=== PATIENT | female | born 1945 | race Caucasian/White ===

== ENCOUNTER 2021-08-11 11:00 | Outpatient (REF) | payer MEDICARE, SELFPAY ==
--- NOTE | ~2021-08-11 | XR_ITS ---
EXAMINATION: XR CHEST CLINICAL INFORMATION: Wheezing COMPARISON: None TECHNIQUE: 2 views of the chest were obtained. FINDINGS: There are post-CABG changes. The cardiac and mediastinal contours are otherwise normal. There is a 5.6 cm round density in the right lower lobe questionable for mass versus round pneumonia. The left lung is clear. There is a small right pleural effusion. There are median sternotomy wires. There are mild degenerative changes of the spine. XR/XR chest 2V IMPRESSION: 5.6 cm round density in the right lower lobe. Differential include mass and round pneumonia. Small right pleural effusion.
[2021-08-11 14:48] LABS: Influenza A PCR NEGATIVE (Negative); Influenza B PCR NEGATIVE (Negative); Resp Syncy Virus RNA Qual PCR NEGATIVE (Negative); SARS COV2 PCR INHOUSE NEGATIVE (Negative)
== END 2021-08-11 11:01 | disposition home or self-care (01) ==
LOC: HO.HMGCLDS 11:00
PROVIDERS: PCP Internal Medicine; Visit Provider Nurse Practitioner Family
DX: Z20.822 Contact with and (suspected) exposure to COVID-19 (principal); J32.9 Chronic sinusitis, unspecified; R06.2 Wheezing
CPT/HCPCS: 0241U; 36415; 71046

== ENCOUNTER 2023-01-03 13:31 | Outpatient (REF) | payer MEDICARE, SELFPAY ==
[2023-01-03 14:03] LABS: Hematocrit 42.2 % (37.0-47.0); Mean Corpuscular HGB Conc 33.2 g/dl (31.0-35.0); Mean Corpuscular Hemoglobin 29.4 pg (27.0-33.0); Mean Corpuscular Volume 88.5 fL (80.0-98.0); Mean Platelet Volume 9.4 fL (9.4-12.3); Platelet Count 242 X10*3/uL (160-400); Red Blood Count 4.77 X10*6/uL (4.20-5.50); Red Cell Distribution Width 12.4 % (11.0-16.0); White Blood Count 6.9 X10*3/uL (4.8-10.8)
[2023-01-03 14:56] LABS: Alanine Aminotransferase 11 U/L (0-31); Albumin Level 4.2 g/dL (3.5-5.0); Alkaline Phosphatase 94 U/L (39-117); Anion Gap 13 (12-20); Aspartate Amino Transferase 19 U/L (5-31); Bilirubin Direct 0.2 mg/dL (0.0-0.5); Bilirubin Total 0.7 mg/dL (0.0-1.0); Blood Urea Nitrogen 14 mg/dL (9-16); Calcium 9.7 mg/dL (8.4-10.2); Carbon Dioxide 29 mmol/L (22-29); Chloride 102 mmol/L (96-108); Cholesterol 300 mg/dL; Estimated Glomerular Filt Rate 48; Glucose Random 79 mg/dL (60-115); HDL Cholesterol 54 mg/dL; LDL Cholesterol Calculated 217 mg/dl; Potassium 4.8 mmol/L (3.3-5.1); Sodium 139 mmol/L (135-145); Total Protein 7.2 g/dL (6.5-8.0); Triglycerides 145 mg/dL
[2023-01-03 15:16] LABS: Thyroid Stimulating Hormone 2.27 uIU/mL (0.32-4.0)
== END 2023-01-03 13:32 | disposition home or self-care (01) ==
LOC: HO.LAB 13:31
PROVIDERS: PCP Internal Medicine; Visit Provider Internal Medicine
DX: F32.9 Major depressive disorder, single episode, unspecified (principal); E78.00 Pure hypercholesterolemia, unspecified
CPT/HCPCS: 36415; 80048; 80061; 80076; 84443; 85027

== ENCOUNTER 2023-05-07 11:35 | Outpatient (AMB) | payer MEDICARE, SELFPAY ==
[2023-05-07 11:49] VITALS: BP 136/72; PULSE 52; O2SAT 98; BMI 28.7
--- NOTE | 2023-05-07 11:49 | MHC.PC.OV ---
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 Patient Dr. Ko last seen the beginging of this month for HDF for NSTEMI. Patient presents today for medication follow up. Patient presents today to request a refill on her Imdur ER 30 mg daily. Refill sent to patients pharmacy. Patient currently in the process of reestablishing care with at [facility]. Patient denies any acute complaints. [facility] Medical History (Updated 01/09/23 @ 10:41 by Stephan Ko MD) Coronary artery disease Hypercholesterolemia MDD (major depressive disorder) Surgical History History of bilateral cataract extraction History of surgery History of tonsillectomy History of wisdom tooth extraction S/P triple vessel bypass Social History Housing: House Alcohol intake: never Patient Tobacco Use Status: Never used Tobacco e-Cigarette/Vaping Use: Never Used Second Hand Smoke Exposure: No service: No Current occupational status: retired Cognitive needs: No Hearing needs: No Vision needs: No Questionnaire Thrive Questionnaire Date Thrive assessed: 01/08/23 AUDIT C Alcohol Use Questionnaire (AUDIT-C) 1. How often do you have a drink containing alcohol?: Monthly or less 2. How many drinks containing alcohol do you have on a typical day when you are drinking?: 1 or 2 3. How often do you have six or more drinks on one occasion?: Never Total Score: 1 ARMIN-7 AMB Questionnaire ARMIN-7 Date ARMIN - 7 assessed: 01/08/23 Source: Developed by Drs. Rl Rice, Amelia Longo, Everett Key and colleagues, with an educational bam from [employer]. Review of Systems Const Denies chills, Denies fatigue, Denies fever(s) and Denies poor appetite Eyes Denies no additional complaints ENT Reports Normal hearing present Card Denies chest pain, Denies syncope, Denies rapid heart rate and Denies dyspnea Resp Denies cough and Denies dyspnea GI Denies change in stool character, Denies constipation, Denies diarrhea, Denies nausea and Denies vomiting Denies urinary frequency, Denies dysuria and Denies urinary urgency Neuro Reports Normal hearing present, Denies confusion and Denies syncope Psych Denies confusion Endo Denies fatigue Physical exam (Primary Care) Vital Signs: Last Vital Signs Pulse 52 05/07/23 11:49 BP 136/72 05/07/23 11:49 Pulse Ox 98 05/07/23 11:49 Oxygen Delivery Method Room Air 05/07/23 11:49 BMI result Body Mass Index 28.7 Tobacco/Smoking Status: Tobacco use Status Tobacco use date assessed 05/07/23 05/07/23 11:53 Patient Tobacco Use Status Never used Tobacco 05/07/23 11:53 e-Cigarette/Vaping Use Never Used 05/07/23 11:53 Thrive Assessment: Date of Thrive Assessment Date Thrive assessed 01/08/23 05/07/23 11:53 Const General: No confusion Orientation/consciousness: No confusion HENMT Head: Yes normocephalic and Yes atraumatic Eyes Conjunctivae: conjunctivae normal Chest Chest palpation & inspection: normal inspection of the chest Resp Effort & Inspection: normal respiratory effort Auscultation: clear to auscultation bilaterally, no crackles, no rhonchi and no wheezes Cardio Rate: regular rate Rhythm: regular rhythm Heart sounds: S1 normal heart sound present and S2 normal heart sound present GI Inspection: Yes normal to inspection Neuro General: No confusion Cranial nerves: Yes Normal hearing present Extrem General: No edema Assessment and Plan Assessment & Plan (1) Coronary artery disease: Code(s): I25.10 - Atherosclerotic heart disease of [place] coronary artery without angina pectoris Plan: Continue on current medications and continue to establish care with a children's tutor nursery. (2) Hypercholesterolemia: Code(s): E78.00 - Pure hypercholesterolemia, unspecified Plan: Continue on rosuvastatin 10 mg daily. Follow low-cholesterol diet. Plan Keep previously scheduled with PCP. Medications: New isosorbide mononitrate ER 30 mg PO DAILY 30 tabs 1RF Discontinued isosorbide dinitrate allow nitrate-free interval of 12-14 hrs per 24-hr period Discontinued Reason: Doctor's Order 30 mg PO BID 60 tabs 0RF Coding Level of Care Code Est Pt Level 3 (98438) Diagnoses Coronary artery disease I25.10 Hypercholesterolemia E78.00
== END 2023-05-07 12:09 | disposition home or self-care (01) ==
PROVIDERS: PCP Internal Medicine; Visit Provider Nurse Practitioner Family
DX: I25.10 Atherosclerotic heart disease of native coronary artery without angina pectoris (principal); E78.00 Pure hypercholesterolemia, unspecified
CPT/HCPCS: 99213

== ENCOUNTER 2025-03-12 15:05 | Outpatient (AMB) | payer MEDICARE, SELFPAY ==
--- NOTE | 2025-03-12 15:21 | MHC.PC.OV ---
Vital Signs 03/12/25 15:23 Height 5 ft 1 in Weight 159 lb 6.307 oz BMI 30.1 BP 122/80 Blood Pressure Location Lt brachial Position Sitting Pulse 55 Pulse Source Pulse Oximeter Temp 97.1 F Temp Source Temporal Artery Scan Pulse Oximetry (%) 96 Oxygen Delivery Method Room Air Intake Visit Reasons: follow up Intake Note: Patient is here to follow up on Hypercholesterolemia. Requesting for VNA service for home PT to strength muscles after stroke. Missile Control Pilot Required: No Communication Technician: Present Accompanied by: Son Allergies acetaminophen [Percocet] Allergy (Unknown, Verified 03/12/25 15:23) Unknown oxycodone [Percocet] Allergy (Unknown, Verified 03/12/25 15:23) Unknown Tobacco use date assessed: 03/12/25 Fall risk assessment: No Falls in past year Last assessed Fall Risk: 03/12/25 Dental Screening Dental Screen Date: 03/12/25 Did you have a dental visit in the last 12 months?: Yes Did you have a dental problem in the last 6 months where you did not have access to dental care?: No Was dental information given to patient?: Patient has dentist [facility] Medical History (Updated 03/17/25 @ 10:19 by Stephan Ko MD) CVA (cerebral vascular accident) Coronary artery disease Hypercholesterolemia MDD (major depressive disorder) Surgical History History of surgery History of bilateral cataract extraction History of wisdom tooth extraction History of tonsillectomy S/P triple vessel bypass Social History Housing: House Alcohol intake: never Patient Tobacco Use Status: Never used Tobacco e-Cigarette/Vaping Use: Never Used Second Hand Smoke Exposure: No service: No Current occupational status: retired Cognitive needs: No Hearing needs: No Vision needs: No Questionnaire PHQ-9 Over the last 2 weeks, how often have you been bothered by any of the following problems? 1. Little interest or pleasure in doing things: not at all 2. Feeling down, depressed, or hopeless: not at all 3. Trouble falling or staying asleep, or sleeping too much: not at all 4. Feeling tired or having little energy: several days 5. Poor appetite or overeating: several days 6. Feeling bad about yourself - or that you are a failure or have let yourself or your family down: not at all 7. Trouble concentrating on things, such as reading the newspaper or watching television: not at all 8. Moving or speaking so slowly that other people could have noticed. Or the opposite - being so fidgety or restless that you have been moving around a lot more than usual: several days 9. Thoughts that you would be better off or of hurting yourself in some way: not at all Total score: 3 Depression Screening Interpretation: Positive Depression Screening Done: Yes Source: Developed by Drs. Rl Rice, Amelia Longo, Everett Key and colleagues, with an educational bam from [employer]. Thrive Questionnaire Date Thrive assessed: 03/12/25 I am a: Patient What is your living situation today?: I have a steady place to live Within the past 12 months, did the food you bought not last and you didn't have the money to get more?: Never true Within the past 12 months, did you worry whether your food would run out before you got money to buy more?: Never true Do you have trouble paying for medicines?: No Do you have trouble getting transportation to medical appointments?: No Do you have trouble paying your heating and electricity bill?: No Do you have trouble taking care of your child, family member or friend?: No Do you have trouble with day-to-day activities such as bathing, preparing meals, shopping, managing finances, etc.?: No Are you currently unemployed and looking for a job?: No Are you interested in more education?: No Please select the resources that you would like help with: Care for elder or disabled Currently or been in a relationship where the following occur: No concerns reported THRIVE Score: 0 AUDIT C Alcohol Use Questionnaire (AUDIT-C) 1. How often do you have a drink containing alcohol?: Monthly or less 2. How many drinks containing alcohol do you have on a typical day when you are drinking?: 1 or 2 3. How often do you have six or more drinks on one occasion?: Never Total Score: 1 ARMIN-7 AMB Questionnaire ARMIN-7 Date ARMIN - 7 assessed: 03/12/25 Feeling nervous, anxious, or on edge: 1 = Several days Not being able to stop or control worryin = Not at all Worrying too much about different things: 0 = Not at all Trouble relaxin = Not at all Being so restless that it is hard to sit still: 0 = Not at all Becoming easily annoyed or irritable: 0 = Not at all Feeling afraid as if something awful might happen: 0 = Not at all Total ARMIN-7 score (0-4 normal; 5-9 mild; 10-14 moderate; 15-21 severe): 1 Source: Developed by Drs. Rl Rice, Amelia Longo, Everett Key and colleagues, with an educational bam from [employer]. Physical exam (Primary Care) Vital Signs: Last Vital Signs Temp 97.1 F 03/12/25 15:23 Pulse 55 03/12/25 15:23 BP 122/80 03/12/25 15:23 Pulse Ox 96 03/12/25 15:23 Oxygen Delivery Method Room Air 03/12/25 15:23 BMI result Body Mass Index 30.1 Tobacco/Smoking Status: Tobacco use Status Tobacco use date assessed 03/12/25 03/12/25 15:36 Patient Tobacco Use Status Never used Tobacco 03/12/25 15:36 e-Cigarette/Vaping Use Never Used 03/12/25 15:36 PHQ-9: PHQ-9 Score PHQ-9: Total score 3 03/12/25 15:36 Depression Screening Interpretation: Positive Thrive Assessment: Date of Thrive Assessment Date Thrive assessed 03/12/25 03/12/25 15:36 Currently or been in a relationship where the following occur: No concerns reported Coding Level of Care Code Est Pt Level 4 (11755) Complex EM visit Add On G2211 Diagnoses CVA (cerebral vascular accident) I63.9 Assessment & Plan Assessment & Plan (1) CVA (cerebral vascular accident): Code(s): I63.9 - Cerebral infarction, unspecified Category: Medical Plan: History of Present Illness - The patient is a 79-year-old female presenting with concerns regarding cardiovascular health. - She has a history of stroke, with imaging confirming the location of the event. - Carotid artery stenosis is present, with estimated 65% stenosis in a previously treated artery and 85% in another. - Consulted with a ski production supervisor regarding stenting options and potential risks. - A blood clot was identified as having formed in the heart, leading to a stroke. - The patient currently resides with her daughter after her son-in-law's passing. Social History - Lives with daughter after daughter's 's passing. - Daughter has five children and works full-time. - Patient previously traveled internationally and has adopted children. - A friend advised the use of a four-pronged cane for stability. Review of Systems - Cardiovascular: Reports a history of stroke and carotid artery stenosis. - Musculoskeletal: Reports being advised to use a four-pronged cane for stability. - Neurological: Reports a previous stroke. - General: Denies additional acute concerns aside from cardiovascular issues. Physical Exam General: Cooperative and healthy appearing Nutritional Appearance: Well nourished Orientation/consciousness: Patient oriented x3 Limitations: No limitations Head: Normal to inspection General: Appearance normal, both eyes and all related structures Neck: Normal visual inspection Chest: Normal palpation of entire chest wall Respiratory: N ormal respiratory effort Neurology: Patient oriented x3, recent stroke with carotid artery involvement, estimated 65% stenosis in cleaned artery, 85% in another artery. Results - Imaging: MRI showed the location of the stroke. - Diagnostic: Carotid artery stenosis estimated at 65% and 85%. Plan 1. Carotid Artery Stenosis - Continued follow-up with cardiology to monitor stenosis. - Discussed stenting and risks involved. 2. Stroke - Ongoing anticoagulation therapy to prevent recurrence. - Lifestyle modification and medication adherence emphasized. 3. 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 - Advised on diet, exercise, and medication adherence. Discussion Notes During the visit, we discussed the patient's cardiovascular health, with a focus on her carotid artery stenosis and previous stroke. I addressed the potential for stenting, emphasizing its risks and benefits, and reinforced the importance of ongoing anticoagulation therapy to prevent further strokes. We also reviewed lifestyle modifications and the significance of adhering to prescribed medications for managing her coronary artery disease. I encouraged regular follow-ups with her ski production supervisor to monitor her condition closely. Patient Instructions - Follow up with your ski production supervisor as scheduled. - Continue taking medications as prescribed. - Maintain a healthy diet and regular exercise as advised. - Monitor for any new or worsening symptoms and seek medical attention if necessary. - Use a four-pronged cane as needed for stability. - Contact the pharmacy for any needed prescription refills.
[2025-03-12 15:23] VITALS: BP 122/80; PULSE 55; TEMP 36.2; O2SAT 96; BMI 30.1
== END 2025-03-12 16:04 | disposition home or self-care (01) ==
LOC: HO.HMCH 15:05
PROVIDERS: PCP Internal Medicine; Visit Provider Internal Medicine
DX: I63.9 Cerebral infarction, unspecified (principal)

== ENCOUNTER → 2025-03-12 15:05 | Outpatient (BNVA) | payer MEDICARE, SELFPAY | PROVIDERS: PCP Internal Medicine; Visit Provider Internal Medicine | DX: I65.23 Occlusion and stenosis of bilateral carotid arteries (principal); I25.10 Atherosclerotic heart disease of native coronary artery without angina pectoris; Z86.73 Personal history of transient ischemic attack (TIA), and cerebral infarction without residual deficits | CPT/HCPCS: 96127; 99212 ==

== ENCOUNTER 2025-04-06 14:59 | Outpatient (REF) | payer MEDICARE, SELFPAY ==
--- OUTSIDE RECORDS SUMMARY | 2025-04-06 16:31 | XMS_ITS ---
Author Name [facility] Organization Unknown History of Medication Use Medication Directions Dispensed Refills Start Date End Date Stat us atorvastatin (LIPITOR) 80 mg tablet Take 1 tablet (80 mg total) by mouth at bedtime. 01/27/2025 active clopidogreL (PLAVIX) 75 mg tablet Take 1 tablet (75 mg total) by mouth daily. 01/27/2025 active latanoprost (XALATAN) 0.005 % ophthalmic solution instill 1 drop into both eyes at bedtime 11/18/2024 active isosorbide mononitrate (IMDUR) 30 mg 24 hr extended release tablet Take 1 tablet (30 mg total) by mouth daily. 11/17/2024 active lisinopriL (PRINIVIL,ZESTRIL) 40 mg tablet Take 1 tablet (40 mg total) by mouth daily. 07/22/2024 02/09/2025 aborted aspirin 81 mg EC delayed release tablet Take 1 tablet (81 mg total) by mouth daily. active lisinopriL (PRINIVIL,ZESTRIL) 10 mg tablet Take 1 tablet (10 mg total) by mouth daily. active Problems Problem Status Onset Date Problem Type Date of Resoluti on Source Wheezing active EncounterDiagnosisAct [email or web address] Encounters Encounter Type Encounter Reason Primary Diagnosis Location Date Ambulatory Wheezing Wheezing [facility] 02/10/20 25 Ambulatory Cough Cough [facility] 10/14/2024 Care Team Organization Name Specialty Phone Email Start Date End [facility] 10/14/2024 [facility] NO PCP Primary Care 01/31/2023 01/31/2023
== END 2025-04-06 15:00 | disposition home or self-care (01) ==
LOC: HO.SH 14:59
PROVIDERS: Visit Provider Internal Medicine
DX: Z01.118 Encounter for examination of ears and hearing with other abnormal findings (principal); H90.3 Sensorineural hearing loss, bilateral
CPT/HCPCS: 92557; 92567